=== PATIENT | male | born 1975 | race Two or more races ===

== ENCOUNTER 2018-05-08 07:57 | Emergency (ER) | payer MEDICAID ==
[~2018-05-08] VITALS: Ht 160 cm; Wt 81.6 kg
[2018-05-08] MEDS ORDERED: ACETAMINOPHEN 500 MG TAB PO ONE (08:15)
[2018-05-08 09:51] VITALS: BP 148/97
[2018-05-08] MEDS ORDERED: cefTRIAXone SOD 1,000 MG VL IM ONE (10:30)
[2018-05-08] MEDS ORDERED: methylPREDNISolone SOD SUCC 125 MG/2 ML VL IM ONE (10:30)
[2018-05-08 10:35] LABS: Basophils # (auto) 0 uL; Basophils % (auto) 0.5 % (0.0-2.0); Eosinophils # (auto) 0 uL; Eosinophils % (auto) 0.1 % (0.0-7.0); Hematocrit 44.3 % (41.0-53.0); Hemoglobin 15.5 g/dL (13.5-17.5); Lymphocytes % (auto) 15.5 % (10.0-50.0); Mean Corpuscular Hemoglobin 30.7 pg (28.0-32.0); Mean Corpuscular Volume 87.7 fL (80.0-100.0); Monocytes # (auto) 0.7 uL; Monocytes % (auto) 10.8 % (0.0-12.0); Neutrophils # (auto) 4.8 uL; Neutrophils % (auto) 73.1 % (37.0-80.0); Nucleated Red Blood Cells % 0.2 %; Platelet Count (auto) 188 10^3/uL (140-450); Red Blood Cells 5.05 10^6/uL (4.5-5.90); Red Cell Distribution Width 13.1 % (11.8-14.3); White Blood Cell 6.5 10^3/uL (4.4-10.8)
[2018-05-08 10:55] LABS: BUN/Creatinine Ratio 10.8; Bilirubin, Total 0.9 mg/dL (0.2-1.0); Calcium 8.1 mg/dL (8.5-10.1); Potassium 3.6 mmol/L (3.5-5.1); Total Protein 7.6 g/dL (6.4-8.2)
[2018-05-08 11:12] LABS: Urine Bacteria NONE SEEN /hpf (None Seen); Urine Blood 2+ /uL (Negative); Urine Hyaline Cast MOD /lpf (0 - 2); Urine Mucus FEW (None Seen); Urine Specific Gravity 1.028 (1.001-1.035); Urine WBC 2 /hpf (0 - 3)
[2018-05-08] MEDS ORDERED: SODIUM CHLORIDE 0.9% 3,000 ML IV ONE (11:15)
[2018-05-08] MEDS ORDERED: SODIUM CHLORIDE 0.9% 1,000 ML IV ONE (11:45)
== END 2018-05-08 12:26 | disposition home or self-care (01) ==
LOC: ER 07:57
DX: R50.9 Fever, unspecified (principal); J03.90 Acute tonsillitis, unspecified; E86.0 Dehydration; R74.8 Abnormal levels of other serum enzymes
CPT/HCPCS: 36415; 70450; 71046; 80053; 81001; 85025; 87070; 87880; 96372; 99285; J0696; J2930; J7030

== ENCOUNTER 2021-05-17 14:38 | Inpatient (IN) | payer MEDICAID, OTHER ==
[~2021-05-17] VITALS: Ht 157.5 cm; Wt 88.0 kg
[2021-05-17] MEDS ORDERED: cloNIDine HCL 0.1 MG TAB ONE (14:41)
[2021-05-17] MEDS ORDERED: cloNIDine HCL 0.1 MG TAB PO ONE (14:45)
[2021-05-17] MEDS ORDERED: amLODIPine BESYLATE 5 MG TAB PO ONE (17:00)
[2021-05-17] MEDS ORDERED: cloNIDine HCL 0.1 MG TAB PO PRN (21:45)
[2021-05-17] MEDS ORDERED: DOCUSATE SOD 100 MG CAP PO PRN (21:45)
[2021-05-17] MEDS ORDERED: ONDANSETRON HCL 4 MG/2 ML VIAL IV PRN (21:45)
[2021-05-17] MEDS ORDERED: MORPHINE SULFATE INJECTION 2 MG/ML SYRG IV PRN (21:45)
[2021-05-17] MEDS ORDERED: ACETAMINOPHEN 325 MG TAB PO PRN (21:45)
[2021-05-17] MEDS ORDERED: HYDROcodone-ACET 5/325MG TAB PO PRN (21:45)
[2021-05-17] MEDS: METOPROLOL TARTRATE 25 MG TAB PO SCH (22:00)
[2021-05-17] MEDS: FAMOTIDINE (10MG/ML) 2ML VL IV SCH (22:00)
[2021-05-17] MEDS: ATORVASTATIN 20 MG TAB PO SCH (22:00)
[2021-05-17 22:14] LABS: Basophils # (auto) 0.2 10 ^3/uL (0-0.2); Basophils % (auto) 1.9 % (0.0-2.0); Eosinophils # (auto) 0.3 10 ^3/uL (0-0.8); Eosinophils % (auto) 3.6 % (0.0-7.0); Hematocrit 45.3 % (41.0-53.0); Hemoglobin 16.1 g/dL (13.5-17.5); Lymphocytes # (auto) 2.4 10 ^3/uL (0.4-5.4); Lymphocytes % (auto) 30.6 % (10.0-50.0); Mean Corpuscular Hemoglobin 32.1 pg (28.0-32.0); Mean Corpuscular Hgb Conc. 35.6 g/dL (32.0-36.0); Mean Corpuscular Volume 90.2 fL (80.0-100.0); Monocytes # (auto) 0.7 10 ^3/uL (0-1.3); Monocytes % (auto) 8.7 % (0.0-12.0); Neutrophils # (auto) 4.4 10 ^3/uL (1.6-8.6); Neutrophils % (auto) 55.2 % (37.0-80.0); Nucleated Red Blood Cells % 0.1 %; Red Blood Cells 5.03 10^6/uL (4.5-5.90); Red Cell Distribution Width 12.8 % (11.8-14.3); White Blood Cell 7.9 10^3/uL (4.4-10.8)
[2021-05-17] MEDS: SODIUM CHLOR 0.9% PF (SALINE LOCK) 10ML VIAL/SYR IV SCH (22:19)
[2021-05-17 22:41] LABS: Albumin 2.8 g/dL (3.4-5.0); BUN/Creatinine Ratio 9.6; Calcium 8.4 mg/dL (8.5-10.1); Potassium 3.6 mmol/L (3.5-5.1)
[2021-05-17 22:44] LABS: Bilirubin, Total 0.3 mg/dL (0.2-1.0); Total Protein 7.3 g/dL (6.4-8.2)
[2021-05-18] MEDS ORDERED: MORPHINE SULFATE INJECTION 2 MG/ML SYRG IV PRN (00:15)
[2021-05-18] MEDS ORDERED: SODIUM CHLORIDE 0.9% 1,000 ML IV SCH (00:15)
[2021-05-18] MEDS ORDERED: NITROGLYCERIN 0.4 MG SL TAB SL PRN (00:15)
[2021-05-18] MEDS ORDERED: DEXTROSE (50%) 50ML SYRG IV PRN (00:15)
[2021-05-18 02:38] VITALS: BP 159/109
[2021-05-18 03:30] VITALS: BP 146/98
[2021-05-18] MEDS: InsuLIN REG 1unit/0.01ml Soln (100units/ml) SC SCH ×4 (04:47→22:47)
[2021-05-18] MEDS: ACCU-CHEK COMFORT CURVE STRIP VI SCH ×4 (04:52→22:00)
[2021-05-18] MEDS: SODIUM CHLOR 0.9% PF (SALINE LOCK) 10ML VIAL/SYR IV SCH ×3 (06:45→22:48)
[2021-05-18 08:12] LABS: Basophils # (auto) 0.1 10 ^3/uL (0-0.2); Basophils % (auto) 0.9 % (0.0-2.0); Eosinophils # (auto) 0.2 10 ^3/uL (0-0.8); Hematocrit 45.6 % (41.0-53.0); Hemoglobin 16.1 g/dL (13.5-17.5); Lymphocytes # (auto) 2.3 10 ^3/uL (0.4-5.4); Lymphocytes % (auto) 28.2 % (10.0-50.0); Mean Corpuscular Hemoglobin 32.2 pg (28.0-32.0); Mean Corpuscular Hgb Conc. 35.3 g/dL (32.0-36.0); Mean Corpuscular Volume 91.3 fL (80.0-100.0); Monocytes # (auto) 0.7 10 ^3/uL (0-1.3); Monocytes % (auto) 8.7 % (0.0-12.0); Neutrophils # (auto) 4.7 10 ^3/uL (1.6-8.6); Neutrophils % (auto) 59.2 % (37.0-80.0); Red Blood Cells 4.99 10^6/uL (4.5-5.90); Red Cell Distribution Width 12.8 % (11.8-14.3)
[2021-05-18 08:35] LABS: Albumin 2.7 g/dL (3.4-5.0); Anion Gap 6 (5-15); Calcium 8.6 mg/dL (8.5-10.1); Carbon Dioxide 27 mmol/L (21-32); Chloride 106 mmol/L (98-107); Glucose 131 mg/dL (74-106); Potassium 3.5 mmol/L (3.5-5.1); Sodium 139 mmol/L (136-145)
[2021-05-18 08:40] LABS: Alanine Aminotransferase 49 U/L (16-61); Alkaline Phosphatase 97 U/L (45-117); Aspartate Aminotransferase 35 U/L (15-37); BUN/Creatinine Ratio 11.9; Bilirubin, Total 0.4 mg/dL (0.2-1.0); Blood Urea Nitrogen 18 mg/dL (7-18); Cholesterol 195 mg/dL (< 200); GFR African American 65 mL/min; GFR Non-African American 54 mL/min; HDL Cholesterol 33 mg/dL (40-59); Total Protein 6.8 g/dL (6.4-8.2); Triglycerides 678 mg/dL (< 150)
[2021-05-18 09:00] VITALS: BP 166/107
[2021-05-18] MEDS: FAMOTIDINE (10MG/ML) 2ML VL IV SCH (09:32)
[2021-05-18] MEDS: METOPROLOL TARTRATE 25 MG TAB PO SCH ×2 (09:34→22:33)
[2021-05-18] MEDS ORDERED: amLODIPine BESYLATE 5 MG TAB PO SCH (10:00)
[2021-05-18] MEDS ORDERED: ASPirin 81 mg TAB PO SCH (10:00)
[2021-05-18] MEDS ORDERED: NYSTATIN TOPICAL CREAM 15GM TOP ONE (11:15)
[2021-05-18] MEDS ORDERED: cloNIDine HCL 0.1 MG TAB PO PRN (11:15)
[2021-05-18] MEDS ORDERED: NIFEdipine ER 30 MG TAB PO ONE (11:15)
[2021-05-18 14:03] LABS: Urine Bacteria NONE SEEN /hpf (None Seen); Urine Blood Negative /uL (Negative); Urine Specific Gravity 1.018 (1.001-1.035); Urine WBC 1 /hpf (0 - 3)
[2021-05-18 17:21] VITALS: BP_SYST 148; BP_SYST 155; BP_DIAS 102; BP_DIAS 80
[2021-05-18 22:00] VITALS: BP 138/87
[2021-05-18] MEDS: ATORVASTATIN 20 MG TAB PO SCH (22:33)
[2021-05-18] MEDS: NYSTATIN TOPICAL CREAM 15GM TOP SCH (22:48)
[2021-05-19 05:00] VITALS: BP 121/78
[2021-05-19] MEDS: SODIUM CHLOR 0.9% PF (SALINE LOCK) 10ML VIAL/SYR IV SCH ×3 (06:36→22:30)
[2021-05-19] MEDS: ACCU-CHEK COMFORT CURVE STRIP VI SCH ×4 (06:37→22:12)
[2021-05-19] MEDS: InsuLIN REG 1unit/0.01ml Soln (100units/ml) SC SCH ×4 (06:39→22:28)
[2021-05-19 07:09] LABS: Potassium 3.6 mmol/L (3.5-5.1)
[2021-05-19 07:18] LABS: BUN/Creatinine Ratio 15.6; Calcium 8.6 mg/dL (8.5-10.1)
[2021-05-19 09:00] VITALS: BP 127/79
[2021-05-19] MEDS: NYSTATIN TOPICAL CREAM 15GM TOP SCH ×2 (10:00→22:12)
[2021-05-19] MEDS: NIFEdipine ER 30 MG TAB PO SCH (10:35)
[2021-05-19] MEDS: METOPROLOL TARTRATE 25 MG TAB PO SCH ×2 (10:36→22:12)
[2021-05-19 13:00] VITALS: BP 144/96
[2021-05-19 17:00] VITALS: BP 142/90
[2021-05-19 22:00] VITALS: BP 136/86
[2021-05-19] MEDS: ATORVASTATIN 20 MG TAB PO SCH (22:11)
[2021-05-20 05:00] VITALS: BP 127/93
[2021-05-20] MEDS: SODIUM CHLOR 0.9% PF (SALINE LOCK) 10ML VIAL/SYR IV SCH (06:41)
[2021-05-20] MEDS: ACCU-CHEK COMFORT CURVE STRIP VI SCH ×2 (06:48→11:43)
[2021-05-20] MEDS: InsuLIN REG 1unit/0.01ml Soln (100units/ml) SC SCH ×2 (06:51→12:19)
[2021-05-20 08:00] VITALS: BP 137/91
[2021-05-20 09:00] VITALS: BP 137/91
[2021-05-20] MEDS: NYSTATIN TOPICAL CREAM 15GM TOP SCH (11:41)
[2021-05-20] MEDS: NIFEdipine ER 30 MG TAB PO SCH (11:42)
[2021-05-20] MEDS: METOPROLOL TARTRATE 25 MG TAB PO SCH (11:43)
[2021-05-20 12:28] VITALS: BP 137/91
[2021-05-20 13:00] VITALS: BP 137/58
== END 2021-05-20 13:14 | disposition home or self-care (01) | DRG 199 ==
LOC: EDUNIT# 14:38 → ER 14:38 → OVERFLOW 05-18 00:14 → CENTRAL 05-18 02:14 → TELE-CENTR 05-19 02:26
PROVIDERS: ADMIT Nurse Practitioner Family; ATTEND Internal Medicine
DX: I16.0 Hypertensive urgency (principal); E11.22 Type 2 diabetes mellitus with diabetic chronic kidney disease; B37.49 Other urogenital candidiasis; E66.9 Obesity, unspecified; E11.65 Type 2 diabetes mellitus with hyperglycemia; Z20.822 Contact with and (suspected) exposure to COVID-19; E78.5 Hyperlipidemia, unspecified; I12.9 Hypertensive chronic kidney disease with stage 1 through stage 4 chronic kidney disease, or unspecified chronic kidney disease; N18.30 Chronic kidney disease, stage 3 unspecified; R80.9 Proteinuria, unspecified; Z68.34 Body mass index [BMI] 34.0-34.9, adult; Z91.14 Patient's other noncompliance with medication regimen; Z79.84 Long term (current) use of oral hypoglycemic drugs; Z79.899 Other long term (current) drug therapy; Z82.49 Family history of ischemic heart disease and other diseases of the circulatory system; Z91.19 Patient's noncompliance with other medical treatment and regimen
CPT/HCPCS: 36415; 76775; 80048; 80053; 80061; 81001; 82962; 83036; 84443; 85025; 87426; 93005; 96360; G0378; J1815; J2405; J3490

== ENCOUNTER 2022-03-08 08:28 | Emergency (ER) | payer MEDICAID ==
[~2022-03-08] VITALS: Ht 160 cm; Wt 95.4 kg
[2022-03-08 10:06] LABS: Basophils # (auto) 0 10 ^3/uL (0-0.2); Basophils % (auto) 0.6 % (0.0-2.0); Eosinophils # (auto) 0.2 10 ^3/uL (0-0.8); Eosinophils % (auto) 2.3 % (0.0-7.0); Hematocrit 43.1 % (41.0-53.0); Hemoglobin 14.1 g/dL (13.5-17.5); Lymphocytes # (auto) 2.2 10 ^3/uL (0.4-5.4); Lymphocytes % (auto) 27.9 % (10.0-50.0); Mean Corpuscular Hemoglobin 29.2 pg (28.0-32.0); Mean Corpuscular Hgb Conc. 32.7 g/dL (32.0-36.0); Mean Corpuscular Volume 89.3 fL (80.0-100.0); Monocytes # (auto) 0.6 10 ^3/uL (0-1.3); Monocytes % (auto) 7.1 % (0.0-12.0); Neutrophils # (auto) 4.8 10 ^3/uL (1.6-8.6); Neutrophils % (auto) 62.1 % (37.0-80.0); Nucleated Red Blood Cells % 0.1 %; Red Blood Cells 4.82 10^6/uL (4.5-5.90); Red Cell Distribution Width 13.2 % (11.8-14.3); White Blood Cell 7.7 10^3/uL (4.4-10.8)
[2022-03-08 10:14] LABS: Potassium 4.7 mmol/L (3.5-5.1)
[2022-03-08 10:23] LABS: Albumin 3.6 g/dL (3.4-5.0); BUN/Creatinine Ratio 13.4; Bilirubin, Total 0.6 mg/dL (0.2-1.0); Calcium 8.8 mg/dL (8.5-10.1)
[2022-03-08 10:49] LABS: Urine Bacteria NONE SEEN /hpf (None Seen); Urine Blood Negative /uL (Negative); Urine Specific Gravity 1.024 (1.001-1.035); Urine WBC 1 /hpf (0 - 3)
[2022-03-08] MEDS ORDERED: SODIUM CHLORIDE 0.9% 1,000 ML IV ONE (11:15)
[2022-03-08 15:25] VITALS: BP 148/84
[2022-03-08] MEDS ORDERED: METO-281 PO (16:29)
[2022-03-08] MEDS ORDERED: TRAM50TA2 PO (16:29)
[2022-03-08] MEDS ORDERED: OMEP-263 PO (16:29)
== END 2022-03-08 16:50 | disposition home or self-care (01) ==
LOC: ER 08:28
DX: K40.90 Unilateral inguinal hernia, without obstruction or gangrene, not specified as recurrent (principal); K80.20 Calculus of gallbladder without cholecystitis without obstruction; K57.90 Diverticulosis of intestine, part unspecified, without perforation or abscess without bleeding; E11.21 Type 2 diabetes mellitus with diabetic nephropathy; E78.5 Hyperlipidemia, unspecified
CPT/HCPCS: 36415; 74176; 80053; 81001; 83690; 83735; 85025; 96360; 96361; 99284; J7030

== ENCOUNTER 2022-05-03 12:04 | Inpatient (IN) | payer MEDICAID ==
[~2022-05-03] VITALS: Ht 160 cm; Wt 87.1 kg
[~2022-05-03 12:04] MED LIST: METO-281 PO; OMEP-263 PO; TRAM50TA2 PO
[2022-05-03 12:43] LABS: Basophils # (auto) 0.1 10 ^3/uL (0-0.2); Basophils % (auto) 0.6 % (0.0-2.0); Eosinophils # (auto) 0.1 10 ^3/uL (0-0.8); Eosinophils % (auto) 1.9 % (0.0-7.0); Hemoglobin 13.8 g/dL (13.5-17.5); Lymphocytes # (auto) 2.1 10 ^3/uL (0.4-5.4); Lymphocytes % (auto) 27.2 % (10.0-50.0); Mean Corpuscular Hemoglobin 29.4 pg (28.0-32.0); Mean Corpuscular Hgb Conc. 33.7 g/dL (32.0-36.0); Mean Corpuscular Volume 87.3 fL (80.0-100.0); Monocytes # (auto) 0.7 10 ^3/uL (0-1.3); Monocytes % (auto) 9.3 % (0.0-12.0); Neutrophils # (auto) 4.8 10 ^3/uL (1.6-8.6); Nucleated Red Blood Cells % 0.1 %; Red Cell Distribution Width 13.1 % (11.8-14.3); White Blood Cell 7.8 10^3/uL (4.4-10.8)
[2022-05-03 12:58] LABS: Magnesium 2.3 mg/dL (1.6-2.6); Potassium 4.3 mmol/L (3.5-5.1)
[2022-05-03 13:01] LABS: Bilirubin, Total 0.3 mg/dL (0.2-1.0); Total Protein 8.2 g/dL (6.4-8.2)
[2022-05-03] MEDS ORDERED: ASPirin 81 mg TAB PO ONE ×2 (15:45)
[2022-05-03] MEDS ORDERED: ENOXAPARIN SOD 80 MG/0.8ML SYRINGE SC ONE (16:45)
[2022-05-03] MEDS ORDERED: hydrALAZINE HCL 20 MG/ML VL IV PRN (16:45)
[2022-05-03] MEDS ORDERED: METOPROLOL SUCCINATE XL 50 MG TAB PO ONE (16:45)
[2022-05-03] MEDS ORDERED: MORPHINE SULFATE INJ 2 MG/ml SYRG IV PRN ×2 (16:45)
[2022-05-03] MEDS ORDERED: DEXTROSE (50%) 50ML SYRG IV PRN (16:45)
[2022-05-03] MEDS ORDERED: NITROGLYCERIN 0.4 MG SL TAB SL PRN (16:45)
[2022-05-03] MEDS: InsuLIN REG 1unit/0.01ml Soln (100units/ml) SC SCH ×2 (17:00→22:00)
[2022-05-03] MEDS: ACCU-CHEK COMFORT CURVE STRIP VI SCH ×2 (17:00→22:19)
[2022-05-03 17:11] LABS: Cholesterol 130 mg/dL (< 200)
[2022-05-03 17:14] LABS: HDL Cholesterol 38 mg/dL (40-59); LDL Cholesterol 81 mg/dL (< 100); Triglycerides 108 mg/dL (< 150)
[2022-05-03] MEDS ORDERED: SODIUM CHLORIDE 0.9% 1,000 ML IV ONE (18:30)
[2022-05-03] MEDS ORDERED: ONDANSETRON HCL 4 MG/2 ML VIAL IV PRN (18:45)
[2022-05-03] MEDS: SODIUM CHLORIDE 0.9% 1,000 ML IV SCH (20:18)
[2022-05-03] MEDS ORDERED: METOPROLOL SUCCINATE XL 50 MG TAB PO SCH (22:00)
[2022-05-03] MEDS: ATORVASTATIN 20 MG TAB PO SCH (22:14)
[2022-05-04] MEDS: SODIUM CHLORIDE 0.9% 1,000 ML IV SCH ×4 (02:38→23:08)
[2022-05-04] MEDS: ACCU-CHEK COMFORT CURVE STRIP VI SCH ×4 (06:58→22:25)
[2022-05-04] MEDS: InsuLIN REG 1unit/0.01ml Soln (100units/ml) SC SCH ×4 (06:59→22:00)
[2022-05-04 07:14] LABS: Basophils # (auto) 0 10 ^3/uL (0-0.2); Basophils % (auto) 0.5 % (0.0-2.0); Eosinophils # (auto) 0.1 10 ^3/uL (0-0.8); Eosinophils % (auto) 1.9 % (0.0-7.0); Hematocrit 37.5 % (41.0-53.0); Hemoglobin 12.8 g/dL (13.5-17.5); Lymphocytes # (auto) 1.8 10 ^3/uL (0.4-5.4); Lymphocytes % (auto) 27.6 % (10.0-50.0); Mean Corpuscular Hemoglobin 29.8 pg (28.0-32.0); Mean Corpuscular Volume 87.4 fL (80.0-100.0); Monocytes # (auto) 0.7 10 ^3/uL (0-1.3); Monocytes % (auto) 10.3 % (0.0-12.0); Neutrophils % (auto) 59.7 % (37.0-80.0); Nucleated Red Blood Cells % 0.1 %; Red Blood Cells 4.29 10^6/uL (4.5-5.90); Red Cell Distribution Width 12.9 % (11.8-14.3); White Blood Cell 6.7 10^3/uL (4.4-10.8)
[2022-05-04 07:29] LABS: Potassium 4.8 mmol/L (3.5-5.1)
[2022-05-04 07:39] LABS: Albumin 3.2 g/dL (3.4-5.0); BUN/Creatinine Ratio 11.6; Calcium 8.1 mg/dL (8.5-10.1); Total Protein 6.7 g/dL (6.4-8.2)
[2022-05-04 08:11] LABS: Bilirubin, Total 0.3 mg/dL (0.2-1.0)
[2022-05-04 10:10] LABS: Urine Bacteria NONE SEEN /hpf (None Seen); Urine Blood Negative /uL (Negative); Urine WBC 2 /hpf (0 - 3)
[2022-05-04] MEDS: ENOXAPARIN SOD 40 MG/0.4 ML SYRINGE SC SCH (10:24)
[2022-05-04] MEDS: ASPirin 81 mg TAB PO SCH (10:24)
[2022-05-04] MEDS ORDERED: METOPROLOL TARTRATE 50 MG TAB PO ONE (12:00)
[2022-05-04 12:05] VITALS: BP 154/90
[2022-05-04 12:33] LABS: Alcohol, Urine < 3.0 mg/dL (0-10); Amphetamine Screen, Urine NEGATIVE (NEGATIVE); Barbiturate Scree,Urine NEGATIVE (NEGATIVE); Benzodiazephine Screen, Urine NEGATIVE (NEGATIVE); Cannabinoid Screen, Urine POSITIVE (NEGATIVE); Cocaine Screen, Urine NEGATIVE (NEGATIVE); Opiate Scree,Urine NEGATIVE (NEGATIVE); Phencyclidine Screen, Urine NEGATIVE (NEGATIVE)
[2022-05-04 16:16] VITALS: BP 154/90
[2022-05-04 17:43] VITALS: BP 115/76
[2022-05-04] MEDS: METOPROLOL TARTRATE 50 MG TAB PO SCH (22:00)
[2022-05-04] MEDS: ATORVASTATIN 20 MG TAB PO SCH (22:27)
[2022-05-04 22:31] VITALS: BP 141/82
[2022-05-05 05:20] VITALS: BP 137/86
[2022-05-05] MEDS: ACCU-CHEK COMFORT CURVE STRIP VI SCH ×4 (06:26→22:25)
[2022-05-05] MEDS: InsuLIN REG 1unit/0.01ml Soln (100units/ml) SC SCH ×4 (06:26→22:35)
[2022-05-05 09:00] VITALS: BP 145/89
[2022-05-05] MEDS: METOPROLOL TARTRATE 50 MG TAB PO SCH (10:00)
[2022-05-05] MEDS ORDERED: LISINOPRIL 20 MG TAB PO SCH (10:00)
[2022-05-05] MEDS: ENOXAPARIN SOD 40 MG/0.4 ML SYRINGE SC SCH (10:33)
[2022-05-05] MEDS: ASPirin 81 mg TAB PO SCH (10:33)
[2022-05-05] MEDS ORDERED: FENO145T27 PO (11:56)
[2022-05-05] MEDS ORDERED: METF-370 PO (11:56)
[2022-05-05] MEDS ORDERED: LISI20TA28 PO (11:56)
[2022-05-05] MEDS ORDERED: ATOR20TA50 PO (11:56)
[2022-05-05] MEDS ORDERED: INSU1INJ19 SC (11:56)
[2022-05-05] MEDS ORDERED: NIFE1TAB30 PO (11:56)
[2022-05-05] MEDS ORDERED: GLIP5TAB12 PO (11:56)
[2022-05-05 13:00] VITALS: BP 154/94
[2022-05-05 17:00] VITALS: BP 143/81
[2022-05-05 22:00] VITALS: BP 135/74
[2022-05-05] MEDS: ATORVASTATIN 20 MG TAB PO SCH (22:30)
[2022-05-06 05:00] VITALS: BP 130/82
[2022-05-06 06:27] LABS: BUN/Creatinine Ratio 12.6; Calcium 9.1 mg/dL (8.5-10.1)
[2022-05-06] MEDS: InsuLIN REG 1unit/0.01ml Soln (100units/ml) SC SCH ×4 (07:00→22:21)
[2022-05-06] MEDS: ACCU-CHEK COMFORT CURVE STRIP VI SCH ×4 (07:02→22:14)
[2022-05-06 09:00] VITALS: BP 144/88
[2022-05-06 09:29] VITALS: BP 156/95
[2022-05-06] MEDS: NIFEdipine ER 30 MG TAB PO SCH (10:47)
[2022-05-06] MEDS: ASPirin 81 mg TAB PO SCH (10:47)
[2022-05-06] MEDS: ENOXAPARIN SOD 40 MG/0.4 ML SYRINGE SC SCH (10:48)
[2022-05-06 13:00] VITALS: BP 156/83
[2022-05-06] MEDS ORDERED: ACETYLCYSTEINE ORAL for CIN 20%(200MG/ML) 4ML PO ONE (14:15)
[2022-05-06 17:00] VITALS: BP 132/76
[2022-05-06] MEDS: SODIUM CHLORIDE 0.9% 1,000 ML IV SCH (18:04)
[2022-05-06 22:00] VITALS: BP 140/76
[2022-05-06] MEDS: ATORVASTATIN 20 MG TAB PO SCH (22:24)
[2022-05-06] MEDS: ACETYLCYSTEINE ORAL for CIN 20%(200MG/ML) 4ML PO SCH (22:35)
[2022-05-07] VITALS (10 sets, daily range): BP systolic 111–147; BP diastolic 76–95
[2022-05-07 06:04] LABS: Calcium 9.2 mg/dL (8.5-10.1)
[2022-05-07 06:08] LABS: BUN/Creatinine Ratio 12.4; Potassium 4.8 mmol/L (3.5-5.1)
[2022-05-07] MEDS: ACCU-CHEK COMFORT CURVE STRIP VI SCH ×4 (06:35→21:50)
[2022-05-07] MEDS: InsuLIN REG 1unit/0.01ml Soln (100units/ml) SC SCH ×4 (06:38→21:52)
[2022-05-07] MEDS: SODIUM CHLORIDE 0.9% 1,000 ML IV SCH ×2 (06:40→18:06)
[2022-05-07 06:45] LABS: Basophils # (auto) 0 10 ^3/uL (0-0.2); Eosinophils # (auto) 0.2 10 ^3/uL (0-0.8); Lymphocytes # (auto) 2.1 10 ^3/uL (0.4-5.4); Monocytes # (auto) 0.8 10 ^3/uL (0-1.3); Nucleated Red Blood Cells % 0.1 %; Red Cell Distribution Width 13.1 % (11.8-14.3)
[2022-05-07 06:49] LABS: Basophils % (auto) 0.5 % (0.0-2.0); Eosinophils % (auto) 2.4 % (0.0-7.0); Hematocrit 44.2 % (41.0-53.0); Hemoglobin 14.5 g/dL (13.5-17.5); Lymphocytes % (auto) 25.5 % (10.0-50.0); Mean Corpuscular Hemoglobin 29.1 pg (28.0-32.0); Mean Corpuscular Hgb Conc. 32.7 g/dL (32.0-36.0); Mean Corpuscular Volume 88.8 fL (80.0-100.0); Monocytes % (auto) 9.9 % (0.0-12.0); Neutrophils # (auto) 5.1 10 ^3/uL (1.6-8.6); Neutrophils % (auto) 61.7 % (37.0-80.0); Red Blood Cells 4.98 10^6/uL (4.5-5.90); White Blood Cell 8.3 10^3/uL (4.4-10.8)
[2022-05-07 07:18] LABS: INR 1.04 (0.9-1.15); Partial Thromboplastin Time 29.3 sec (24.6-33.4)
[2022-05-07] MEDS ORDERED: IODIXANOL 320MG/ML 100ML BTL IV ONE (11:25)
[2022-05-07] MEDS ORDERED: LIDOCAINE 2%HCL (LOCAL ANESTH.) INJ 20ML MDV ONE (11:25)
[2022-05-07] MEDS ORDERED: ANGIOMAX 250 MG VIAL IV ONE (11:31)
[2022-05-07] MEDS ORDERED: HEPARIN SODIUM (PORCINE) 5000 UNITS/ML 1ML VIAL ONE (11:32)
[2022-05-07] MEDS ORDERED: MIDAZOLAM HCL 2MG/2ML 2ml VIAL (1mg/ml) ONE (11:32)
[2022-05-07] MEDS ORDERED: SODIUM CHL 0.9% 0 ML ONE (11:32)
[2022-05-07] MEDS ORDERED: VERAPAMIL 2.5MG/ML INJ 2ML VIAL IV ONE (11:32)
[2022-05-07] MEDS ORDERED: fentaNYL CITRATE 100 MCG/2 ML VL ONE (11:32)
[2022-05-07] MEDS: NIFEdipine ER 30 MG TAB PO SCH (13:38)
[2022-05-07] MEDS: ASPirin 81 mg TAB PO SCH (13:38)
[2022-05-07] MEDS: ACETYLCYSTEINE ORAL for CIN 20%(200MG/ML) 4ML PO SCH ×2 (13:39→21:50)
[2022-05-07] MEDS: ATORVASTATIN 20 MG TAB PO SCH (21:50)
[2022-05-08] MEDS: SODIUM CHLORIDE 0.9% 1,000 ML IV SCH (02:26)
[2022-05-08 05:00] VITALS: BP 128/82
[2022-05-08 05:51] LABS: Calcium 8.8 mg/dL (8.5-10.1); Potassium 4.8 mmol/L (3.5-5.1)
[2022-05-08] MEDS: InsuLIN REG 1unit/0.01ml Soln (100units/ml) SC SCH (06:42)
[2022-05-08] MEDS: ACCU-CHEK COMFORT CURVE STRIP VI SCH (06:42)
[2022-05-08 09:30] VITALS: BP 141/87
[2022-05-08] MEDS: NIFEdipine ER 30 MG TAB PO SCH (09:45)
[2022-05-08] MEDS: ASPirin 81 mg TAB PO SCH (09:46)
[2022-05-08] MEDS ORDERED: NIFE90TA49 PO (10:08)
[2022-05-08] MEDS ORDERED: ASPI-498 PO (10:08)
[2022-05-08 12:25] VITALS: BP 141/87
[2022-05-08 13:18] VITALS: BP 136/88
== END 2022-05-08 14:38 | disposition home or self-care (01) | DRG 190 ==
LOC: ER 12:12 → TELE 16:36 → TELE-EAST 05-04 12:05 → UNDODISIN 05-04 12:05
PROVIDERS: ADMIT Registered Nurse; ATTEND Family Medicine
PROC: 4A023N7 Measurement of Cardiac Sampling and Pressure, Left Heart, Percutaneous Approach (ICD-10-PCS; principal; 2022-05-07)
PROC: B211YZZ Fluoroscopy of Multiple Coronary Arteries using Other Contrast (ICD-10-PCS; 2022-05-07)
PROC: B215YZZ Fluoroscopy of Left Heart using Other Contrast (ICD-10-PCS; 2022-05-07)
DX: I21.4 Non-ST elevation (NSTEMI) myocardial infarction (principal); N17.0 Acute kidney failure with tubular necrosis; I25.10 Atherosclerotic heart disease of native coronary artery without angina pectoris; E11.40 Type 2 diabetes mellitus with diabetic neuropathy, unspecified; I12.9 Hypertensive chronic kidney disease with stage 1 through stage 4 chronic kidney disease, or unspecified chronic kidney disease; E11.22 Type 2 diabetes mellitus with diabetic chronic kidney disease; R00.1 Bradycardia, unspecified; R79.89 Other specified abnormal findings of blood chemistry; Z20.822 Contact with and (suspected) exposure to COVID-19; E78.5 Hyperlipidemia, unspecified; F12.10 Cannabis abuse, uncomplicated; T44.7X5A Adverse effect of beta-adrenoreceptor antagonists, initial encounter; N18.31 Chronic kidney disease, stage 3a; E66.9 Obesity, unspecified; Z68.33 Body mass index [BMI] 33.0-33.9, adult; Z71.51 Drug abuse counseling and surveillance of drug abuser; Y92.89 Other specified places as the place of occurrence of the external cause; Z79.4 Long term (current) use of insulin; Z87.891 Personal history of nicotine dependence
CPT/HCPCS: 36415; 71045; 78452; 80048; 80053; 80061; 80307; 81001; 82962; 83036; 83690; 83735; 84443; 84484; 85025; 85610; 85730; 86850; 86900; 86901; 93005; 93017; 93306; 93458; 96361; 96372; 96374; 99152; G0378; J1815; J2250; J2405; Q9967

== ENCOUNTER 2023-05-20 08:38 | Emergency (ER) | payer OTHER, MEDICAID ==
[~2023-05-20] VITALS: Ht 160 cm; Wt 88.6 kg
[~2023-05-20 08:38] MED LIST changes: +ASPI-498 PO; +ATOR20TA50 PO; +FENO145T27 PO; +GLIP5TAB12 PO; +INSU1INJ19 SC; +LISI20TA56 PO; +METF-370 PO; +NIFE1TAB30 PO; +NIFE90TA75 PO; -OMEP-263 PO; +OMEP-448 PO
[2023-05-20 09:04] VITALS: BP 140/72; PULSE 88; RESP 20; TEMP 98; O2SAT 97
[2023-05-20] MEDS ORDERED: METH-1182 PO (10:10)
[2023-05-20] MEDS ORDERED: ACET-1080 PO (10:10)
== END 2023-05-20 10:22 | disposition home or self-care (01) ==
LOC: ER 08:38 → EDBD 08:38 → EDUNIT# 08:38 → ER 10:13
DX: S39.012A Strain of muscle, fascia and tendon of lower back, initial encounter (principal); E11.9 Type 2 diabetes mellitus without complications; E78.5 Hyperlipidemia, unspecified; I10 Essential (primary) hypertension; Z79.899 Other long term (current) drug therapy; Z79.84 Long term (current) use of oral hypoglycemic drugs; Z79.82 Long term (current) use of aspirin; V43.52XA Car driver injured in collision with other type car in traffic accident, initial encounter; Y93.89 Activity, other specified; Y92.89 Other specified places as the place of occurrence of the external cause; Y99.8 Other external cause status
CPT/HCPCS: 72100

== ENCOUNTER 2023-07-03 09:27 | Emergency (ER) | payer OTHER, MEDICAID ==
[~2023-07-03] VITALS: Ht 160 cm; Wt 90.8 kg
[~2023-07-03 09:27] MED LIST changes: +ACET-1080 PO; +METH-1182 PO
[2023-07-03 10:58] VITALS: BP 161/101; PULSE 79; RESP 18; TEMP 97; O2SAT 97
[2023-07-03] MEDS ORDERED: IBUP-1456 PO ×2 (12:39)
[2023-07-03] MEDS ORDERED: ACET-1080 PO (12:51)
== END 2023-07-03 12:41 | disposition home or self-care (01) ==
LOC: ER 09:27
DX: S39.012A Strain of muscle, fascia and tendon of lower back, initial encounter (principal); S39.011A Strain of muscle, fascia and tendon of abdomen, initial encounter; E11.9 Type 2 diabetes mellitus without complications; I10 Essential (primary) hypertension; E78.5 Hyperlipidemia, unspecified; Z79.4 Long term (current) use of insulin; Z79.899 Other long term (current) drug therapy; X58.XXXA Exposure to other specified factors, initial encounter; Y93.89 Activity, other specified; Y92.89 Other specified places as the place of occurrence of the external cause; Y99.8 Other external cause status
CPT/HCPCS: 74176

== ENCOUNTER 2023-11-13 12:57 | Inpatient (IN) | payer MEDICAID, OTHER ==
[~2023-11-13] VITALS: Ht 160 cm; Wt 93.7 kg
[~2023-11-13 12:57] MED LIST changes: -GLIP5TAB12 PO; +GLIP5TAB21 PO
[2023-11-13 14:19] LABS: Basophils # (auto) 0.1 10 ^3/uL (0-0.2); Basophils % (auto) 0.7 % (0.0-2.0); Eosinophils # (auto) 0.2 10 ^3/uL (0-0.8); Eosinophils % (auto) 2.4 % (0.0-7.0); Hematocrit 44.2 % (41.0-53.0); Hemoglobin 15.1 g/dL (13.5-17.5); Lymphocytes # (auto) 1.9 10 ^3/uL (0.4-5.4); Lymphocytes % (auto) 20.9 % (10.0-50.0); Mean Corpuscular Hemoglobin 30.2 pg (28.0-32.0); Mean Corpuscular Hgb Conc. 34.2 g/dL (32.0-36.0); Mean Corpuscular Volume 88.2 fL (80.0-100.0); Monocytes # (auto) 0.8 10 ^3/uL (0-1.3); Monocytes % (auto) 8.7 % (0.0-12.0); Neutrophils # (auto) 6.2 10 ^3/uL (1.6-8.6); Neutrophils % (auto) 67.3 % (37.0-80.0); Red Blood Cells 5.01 10^6/uL (4.5-5.90); Red Cell Distribution Width 13.1 % (11.8-14.3); White Blood Cell 9.2 10^3/uL (4.4-10.8)
[2023-11-13 14:43] LABS: Alanine Aminotransferase 47 U/L (7-40); Albumin 4.3 g/dL (3.2-4.8); Alkaline Phosphatase 90 U/L (46-116); Anion Gap 4 (5-15); Aspartate Aminotransferase 30 U/L (13-40); BUN/Creatinine Ratio 11.7 (10.0-20.0); Blood Urea Nitrogen 25 mg/dL (9-23); Calcium 9.8 mg/dL (8.7-10.4); Carbon Dioxide 29 mmol/L (20-30); Chloride 103 mmol/L (98-107); Glucose 227 mg/dL (74-106); Lipase 41 U/L (12-53); Sodium 136 mmol/L (136-145)
[2023-11-13 14:44] LABS: Bilirubin, Total 0.4 mg/dL (0.2-1.0); Total Protein 7.8 g/dL (5.7-8.2)
[2023-11-13 14:48] LABS: Urine Bacteria None Seen /hpf (None Seen)
[2023-11-13 15:15] LABS: Urine Blood Negative /uL (Negative); Urine Clarity Clear (Clear); Urine Color Light-Yellow (Yellow); Urine Protein, UAD 1+ (Negative); Urine Specific Gravity 1.027 (1.001-1.035); Urine Urobilinogen Normal (Negative); Urine WBC <1 /hpf (0 - 3); Urine pH 5.5 (5.0-9.0)
[2023-11-13] MEDS ORDERED: DICYCLOMINE HCL 10 MG CAP PO PRN (19:15)
[2023-11-13] MEDS ORDERED: ACETAMINOPHEN 325 MG TAB PO PRN ×2 (19:15→22:00)
[2023-11-13 19:31] LABS: Triglycerides 477 mg/dL (< 150)
[2023-11-13 19:33] LABS: HDL Cholesterol 36 mg/dL (40-59)
[2023-11-13 19:34] LABS: Cholesterol 168 mg/dL (< 200)
[2023-11-13] MEDS: KETOROLAC TROMETH 30 MG/ML 1ML VIAL ONE (20:57)
[2023-11-13] MEDS: SODIUM CHLORIDE 0.9% 1,000 ML IV SCH (20:57)
[2023-11-13] MEDS: SODIUM CHLORIDE 0.9% 1,000 ML IV ONE (20:57)
[2023-11-13] MEDS: PANTOPRAZOLE 40 MG/10 ML VIAL INJ IV ONE ×2 (20:57→20:58)
[2023-11-13] MEDS: KETOROLAC TROMETH 30 MG/ML 1ML VIAL IV ONE (20:58)
[2023-11-13] MEDS: DICYCLOMINE HCL 10 MG CAP PO ONE (21:33)
[2023-11-13] MEDS: METOCLOPRAMIDE HCL 10 MG TAB PO ONE (21:47)
[2023-11-13] MEDS: ATORVASTATIN 20 MG TAB ONE (21:48)
[2023-11-13] MEDS: glipiZIDE 5 MG TAB ONE (21:48)
[2023-11-13] MEDS: METOCLOPRAMIDE HCL 10 MG TAB PO SCH (21:54)
[2023-11-13] MEDS: ATORVASTATIN 20 MG TAB PO SCH (21:54)
[2023-11-13] MEDS: glipiZIDE 5 MG TAB PO SCH (21:54)
[2023-11-13] MEDS ORDERED: METHOCARBAMOL 500 MG TAB PO SCH (22:00)
[2023-11-13] MEDS ORDERED: metFORMIN HYDROCHLORIDE 500 MG TAB PO SCH (22:00)
[2023-11-13] MEDS ORDERED: traMADol HCL 50 MG TAB PO SCH (22:00)
[2023-11-14] VITALS (7 sets, daily range): BP systolic 122–151; BP diastolic 67–91; PULSE 58–91; RESP 16–20; TEMP 36.5; O2SAT 95–100
[2023-11-14] MEDS ORDERED: DEXTROSE (50%) 50ML SYRG IV PRN (04:00)
[2023-11-14] MEDS: InsuLIN REG 1unit/0.01ml Soln (100units/ml) ONE (07:11)
[2023-11-14] MEDS: ACCU-CHEK COMFORT CURVE STRIP VI SCH (07:12)
[2023-11-14] MEDS: InsuLIN REG 1unit/0.01ml Soln (100units/ml) SC SCH (07:13)
[2023-11-14 07:38] LABS: Basophils # (auto) 0 10 ^3/uL (0-0.2); Basophils % (auto) 0.4 % (0.0-2.0); Eosinophils # (auto) 0.2 10 ^3/uL (0-0.8); Eosinophils % (auto) 3.6 % (0.0-7.0); Hematocrit 41.5 % (41.0-53.0); Lymphocytes # (auto) 1.8 10 ^3/uL (0.4-5.4); Mean Corpuscular Hemoglobin 30.3 pg (28.0-32.0); Mean Corpuscular Hgb Conc. 33.8 g/dL (32.0-36.0); Mean Corpuscular Volume 89.6 fL (80.0-100.0); Monocytes # (auto) 0.7 10 ^3/uL (0-1.3); Monocytes % (auto) 11.3 % (0.0-12.0); Neutrophils # (auto) 3.2 10 ^3/uL (1.6-8.6); Neutrophils % (auto) 54.7 % (37.0-80.0); Nucleated Red Blood Cells % 0.1 %; Red Blood Cells 4.63 10^6/uL (4.5-5.90); Red Cell Distribution Width 13.6 % (11.8-14.3); White Blood Cell 5.9 10^3/uL (4.4-10.8)
[2023-11-14 08:04] LABS: Alanine Aminotransferase 33 U/L (7-40); Albumin 3.6 g/dL (3.2-4.8); Alkaline Phosphatase 77 U/L (46-116); Anion Gap 3 (5-15); Aspartate Aminotransferase 19 U/L (13-40); BUN/Creatinine Ratio 17.5 (10.0-20.0); Bilirubin, Total 0.3 mg/dL (0.2-1.0); Blood Urea Nitrogen 28 mg/dL (9-23); Calcium 8.4 mg/dL (8.5-10.1); Carbon Dioxide 26 mmol/L (20-30); Chloride 108 mmol/L (98-107); Glucose 211 mg/dL (74-106); Potassium 4.4 mmol/L (3.5-5.1); Sodium 137 mmol/L (136-145); Total Protein 6.6 g/dL (5.7-8.2)
[2023-11-14] MEDS: NIFEdipine ER 30 MG TAB PO SCH (10:00)
[2023-11-14] MEDS: Fenofibrate 1 TAB PO SCH (10:00)
[2023-11-14] MEDS ORDERED: PATIENTS OWN MEDICATION (Omeprazole (Omeprazole Dr) 40 MG) PO SCH (10:00)
[2023-11-14] MEDS: ASPirin-EC 81 mg tab PO ONE (10:31)
[2023-11-14] MEDS: glipiZIDE 5 MG TAB ONE (10:31)
[2023-11-14] MEDS: PANTOPRAZOLE 40 MG/10 ML VIAL INJ IV ONE (10:31)
[2023-11-14] MEDS: METOCLOPRAMIDE HCL 10 MG TAB PO ONE (10:31)
[2023-11-14] MEDS: ENOXAPARIN SOD 40 MG/0.4 ML SYRINGE SC ONE (10:31)
[2023-11-14] MEDS: PANTOPRAZOLE 40 MG/10 ML VIAL INJ IV SCH (10:35)
[2023-11-14] MEDS: ENOXAPARIN SOD 40 MG/0.4 ML SYRINGE SC SCH (10:36)
[2023-11-14] MEDS: ASPirin-EC 81 mg tab PO SCH (10:36)
[2023-11-14 20:15] LABS: Alanine Aminotransferase 37 U/L (7-40); Albumin 3.9 g/dL (3.2-4.8); Alkaline Phosphatase 69 U/L (46-116); Anion Gap 3 (5-15); Aspartate Aminotransferase 21 U/L (13-40); BUN/Creatinine Ratio 15.2 (10.0-20.0); Blood Urea Nitrogen 23 mg/dL (9-23); Calcium 9.2 mg/dL (8.7-10.4); Carbon Dioxide 28 mmol/L (20-30); Chloride 104 mmol/L (98-107); Glucose 138 mg/dL (74-106); Potassium 4.6 mmol/L (3.5-5.1); Sodium 135 mmol/L (136-145)
[2023-11-14 20:16] LABS: Bilirubin, Total 0.4 mg/dL (0.2-1.0); Total Protein 7.2 g/dL (5.7-8.2)
[2023-11-14] MEDS: DOCUSATE SOD 100 MG CAP PO SCH (22:00)
[2023-11-14] MEDS: DOCUSATE SOD 100 MG CAP PO ONE (22:00)
[2023-11-14] MEDS: KETOROLAC TROMETH 30 MG/ML 1ML VIAL IV PRN (22:34)
[2023-11-15 01:00] VITALS: BP_SYST 121; BP_SYST 128; BP_DIAS 74; BP_DIAS 77; PULSE 51; PULSE 82; RESP 20; TEMP 97.9; TEMP 99.9; O2SAT 95
[2023-11-15 05:00] VITALS: BP 128/62; PULSE 61; RESP 18; TEMP 97.4; O2SAT 97
[2023-11-15 05:57] LABS: Basophils # (auto) 0.1 10 ^3/uL (0-0.2); Basophils % (auto) 0.7 % (0.0-2.0); Eosinophils # (auto) 0.2 10 ^3/uL (0-0.8); Eosinophils % (auto) 3.3 % (0.0-7.0); Hematocrit 42.9 % (41.0-53.0); Hemoglobin 14.7 g/dL (13.5-17.5); Lymphocytes # (auto) 2.2 10 ^3/uL (0.4-5.4); Lymphocytes % (auto) 29.4 % (10.0-50.0); Mean Corpuscular Hemoglobin 30.1 pg (28.0-32.0); Mean Corpuscular Hgb Conc. 34.3 g/dL (32.0-36.0); Mean Corpuscular Volume 87.8 fL (80.0-100.0); Monocytes # (auto) 0.7 10 ^3/uL (0-1.3); Monocytes % (auto) 8.8 % (0.0-12.0); Neutrophils # (auto) 4.3 10 ^3/uL (1.6-8.6); Neutrophils % (auto) 57.8 % (37.0-80.0); Nucleated Red Blood Cells % 0.1 %; Red Blood Cells 4.88 10^6/uL (4.5-5.90); Red Cell Distribution Width 13.2 % (11.8-14.3); White Blood Cell 7.4 10^3/uL (4.4-10.8)
[2023-11-15 07:28] LABS: Erythrocyte Sedimentation Rate 9 mm/hr (0-20)
[2023-11-15 08:00] VITALS: PULSE 59; RESP 18; O2SAT 93
[2023-11-15 09:00] VITALS: BP 157/81; PULSE 59; RESP 18; TEMP 97.3; O2SAT 95
[2023-11-15 13:00] VITALS: BP 138/82; PULSE 57; RESP 18; TEMP 97.7; O2SAT 96
[2023-11-15 17:00] VITALS: BP 116/78; PULSE 94; RESP 18; TEMP 97.5; O2SAT 96
== END 2023-11-15 20:11 | disposition home or self-care (01) | DRG 48 ==
LOC: ER 12:57 → OVERFLOW 19:05 → EAST 11-14 02:30
PROVIDERS: ADMIT Nurse Practitioner Family; ATTEND Nurse Practitioner Family
DX: M54.10 Radiculopathy, site unspecified (principal); E11.65 Type 2 diabetes mellitus with hyperglycemia; K57.30 Diverticulosis of large intestine without perforation or abscess without bleeding; E66.01 Morbid (severe) obesity due to excess calories; E78.5 Hyperlipidemia, unspecified; I10 Essential (primary) hypertension; Z79.899 Other long term (current) drug therapy; Z79.1 Long term (current) use of non-steroidal anti-inflammatories (NSAID); Z79.82 Long term (current) use of aspirin; Z87.891 Personal history of nicotine dependence; Z82.49 Family history of ischemic heart disease and other diseases of the circulatory system; Z68.36 Body mass index [BMI] 36.0-36.9, adult
CPT/HCPCS: 36415; 74176; 76705; 80053; 80061; 81001; 82962; 83036; 83615; 83690; 83930; 84443; 85025; 85652; 96361; 96374; 96375; C9113; G0378; J1815; J1885